=== PATIENT | male | born 1945 | race Caucasian/White ===

== ENCOUNTER 2021-07-29 04:44 | Day surgery (SDC) | payer OTHER ==
[2021-07-29 10:13] VITALS: BMI 29.0
[2021-07-29 12:09] VITALS: TEMP 97.6
[2021-07-29 13:09] VITALS: BP 160/74; PULSE 64
== END 2021-07-29 13:42 | disposition home or self-care (01) ==
LOC: JASU-ENDO 04:44
PROVIDERS: ATTEND Internal Medicine Gastroenterology
PROC: 0DBL8ZX Excision of Transverse Colon, Via Natural or Artificial Opening Endoscopic, Diagnostic (ICD-10-PCS; principal; 2021-07-29 10:30)
DX: Z12.11 Encounter for screening for malignant neoplasm of colon (principal); K63.5 Polyp of colon; K57.30 Diverticulosis of large intestine without perforation or abscess without bleeding; K64.8 Other hemorrhoids; R19.4 Change in bowel habit; R10.31 Right lower quadrant pain